=== PATIENT | male | born 1955 | race Caucasian/White ===

== ENCOUNTER 2017-10-13 14:35 | Inpatient (IN) | payer OTHER ==
[~2017-10-13] VITALS: Ht 175.3 cm; Wt 94.8 kg
[~2017-10-13 14:35] MED LIST: ADULT LOW DOSE81 MG PO; AMLODIPINE BESY10 MG PO; AMOXICILLIN875 MG PO; ATROVENT15 ML NS; AUGMENTIN 875875 MG PO; AURODEX OTIC SO10 ML OTIC; BENADRYL25 MG PO; CALCIUM 500 WI1 EAC3 PO; COZAAR 50 MG TA50 M2 PO; DESYREL100 MG PO; ENALAPRIL MALEA10 M1 PO; FINASTERIDE5 MG PO; FLEXERIL PO; GLUCOPHAGE500 MG PO; HYDROCHLOROTHIA25 M1; HYDROCHLOROTHIA25 M2 PO; HYDROCODON-ACE1 EAC7 PO; HYDROCODONE BI473 ML PO; HYDROCODONE-AP1 EAC6 PO; LEVAQUIN 750 M750 MG PO; LIDODERM 5%1 PATC1 TRANSDERM; MECLIZINE HCL12.5 MG PO; MEDROLDOSEPACK PO; METFORMIN; NORCO 5-325 TA1 EACH PO; NORCO 7.5-3251 EACH PO; OMEPRAZOLE40 MG PO; PEPCID20 MG PO; SERTRALINE HCL50 MG PO; TIZANIDINE HCL4 M1 PO; TRAZODONE HCL100 MG PO; ZENPEP DR 10,01 EACH PO; ZOCOR40 MG PO; ZOFRAN ODT4 MG PO; ZOLOFT100 MG PO; ZOLOFT50 MG PO
[2017-10-13 14:53] VITALS: BP 131/80
[2017-10-13 15:39] LABS: URINE BILIRUBIN NEGATIVE (Negative); URINE BLOOD NEGATIVE (Negative); URINE CLARITY CLEAR; URINE COLOR YELLOW; URINE GLUCOSE-RANDOM 1+ (Negative); URINE KETONES NEGATIVE (Negative); URINE LEUKOCYTES-REFLEX NEGATIVE (Negative); URINE NITRITE-REFLEX NEGATIVE (Negative); URINE PROTEIN TRACE (Negative); URINE UROBILINOGEN 0.2 E.U./dl (0.2-1.0)
[2017-10-13 16:03] LABS: HEMATOCRIT 37.5 % (42.0-52.0); HEMOGLOBIN 11.7 gm/dL (14.0-18.0); MCH 25.8 pg (26.0-34.0); MCHC 31.2 g/dL (28.0-37.0); MCV 82.7 fL (80.0-100.0); MPV 9.8 fl. (7.2-11.1); NUCLEATED RBCS 0 /100WBC; PLATELET COUNT* 427 thou/uL (150-400); RBC 4.54 mil/uL (4.50-6.00); RDW-CV 19.2 % (10.5-14.5); WBC 16.2 thou/uL (4.0-11.0)
[2017-10-13 16:10] LABS: APTT 26.1 Seconds (25.0-31.3); PROTIME 9.6 Seconds (9.20-11.50)
[2017-10-13 16:21] LABS: ANION GAP 12 mmol/L (7-16); BUN 11 mg/dL (7-18); CALCIUM 8.4 mg/dL (8.5-10.1); CHLORIDE 102 mmol/L (98-107); CO2 26 mmol/L (21-32); GLUCOSE 198 mg/dL (70-99); POTASSIUM 3.4 mmol/L (3.5-5.1); SODIUM 140 mmol/L (136-145)
[2017-10-13 16:28] LABS: ALBUMIN 3.4 g/dL (3.4-5.0); ALKALINE PHOSPHATASE 88 U/L (46-116); SGOT 26 U/L (15-37); SGPT 31 U/L (30-65); TOTAL BILIRUBIN 0.1 mg/dL (<0.1-1.0); TOTAL PROTEIN 7.6 g/dL (6.4-8.2); TROPONIN-I LEVEL <0.06 ng/mL (<0.06)
[2017-10-13 16:36] LABS: ABSOLUTE EOSINOPHILS 0.5 thou/uL (0.0-0.7); ABSOLUTE LYMPHOCYTES 1.3 thou/uL (0.8-5.3); ABSOLUTE MONOCYTES 0.8 thou/uL (0.0-1.2); ABSOLUTE NEUTROPHILS 13.6 thou/uL (1.6-8.1); ATYPICAL LYMPHS 1 %
[2017-10-13 16:37] LABS: ANISOCYTOSIS 1+; HYPOCHROMASIA 1+; PLATELET ESTIMATE ADEQUATE; POIKILOCYTOSIS 1+
[2017-10-13 16:51] LABS: AMYLASE 25 U/L (25-115); LIPASE 50 U/L (73-393)
[2017-10-13 17:05] LABS: INFLUENZA A ANTIGEN None Detected (None Detect); INFLUENZA B ANTIGEN None Detected (None Detect)
[2017-10-13] MEDS ORDERED: VENTOLIN HFA 1818 GM INH (17:21)
[2017-10-13] MEDS ORDERED: NORCO 7.5-3251 EACH PO (17:21)
[2017-10-13] MEDS ORDERED: ZPAK PO (17:21)
[2017-10-13 18:03] VITALS: BP 129/78
[2017-10-13 20:52] VITALS: BP 157/85
[2017-10-13 21:19] VITALS: BP 152/78
--- NOTE | 2017-10-14 03:34 | NUR ---
PATIENT ARRIVED TO ROOM 116 FROM ER ALERT AND ORIENTED. ORIENTED TO ROOM AND BED CONTROLS. ASSESSMENT DONE CHARTED. C/O HEADACHE BUT PATIENT STATED IV PAIN MEDICATION WAS NOT HELPFUL. PAGED FOR NEW PAIN MEDICAITON. IVF INFUSING WITHOUT DIFFICULTY. NO C/O N/V. PATIENT STATED HE HAS A PRODUCTIVE COUGH OF YELLOW SPUTUM. O2 SAT 93% ON O2 AT 2L/NC. CONTINUES TO RECEIVE IV ANTIBIODICS, INHALERS AND IV STERIODS. DR RETURNED CALL AND ALSO NOTIFIED OF ELEVATED TEMPATURE. NEW MEDICATION ORDER NOTED. WANTED PATIENT TRANSFERED TO TELE. REPORT CALLED TO CARMINE AT APROXIMATELY 0030. SHE WAS NOTIFIED OF MOST RECENT ASSESSMENT V/S AND LABS. PATIENT TRANSFERED TO ROOM AT APROXIMATELY 0040.
[2017-10-14 04:49] VITALS: BP 132/56
--- NOTE | 2017-10-14 05:24 | NUR ---
PT TRANSFERED FROM [facility]THO AT 0130 ALERT AND ORIENTED VS AND ASSESSMENT STABLE. NSR ON THE MONITOR. PT C/O PAIN GAVE PRN FENTANYL THEN NORCO. THEN PT SLEPT THROUGH THE NIGHT. WILL MONITOR.
[2017-10-14 05:26] LABS: HEMATOCRIT 34.2 % (42.0-52.0); HEMOGLOBIN 10.8 gm/dL (14.0-18.0); MCH 26.4 pg (26.0-34.0); MCHC 31.7 g/dL (28.0-37.0); MCV 83.1 fL (80.0-100.0); MPV 9.8 fl. (7.2-11.1); RBC 4.11 mil/uL (4.50-6.00); RDW-CV 19.3 % (10.5-14.5); WBC 13.7 thou/uL (4.0-11.0)
[2017-10-14 05:42] LABS: CALCIUM 7.8 mg/dL (8.5-10.1); CREATININE 0.9 mg/dL (0.6-1.3); POTASSIUM 3.5 mmol/L (3.5-5.1)
[2017-10-14 08:59] VITALS: BP 113/64
--- NOTE | 2017-10-14 11:05 | NUR ---
ASSUMED PT CARE 0730. PT A/O X'S 4. PT C/O OF HEADACHE, RIGHT UPPER QUADRANT PAIN. PAIN MEDICATION ADMINISTERED PER DEC. PT VOIDING PER URINAL. WILL CONTINUE PLAN OF CARE.
[2017-10-14 11:30] VITALS: BP 162/93
[2017-10-14] MEDS ORDERED: LANTUS100 UNIT/M SUBQ ×2 (14:11)
[2017-10-14] MEDS ORDERED: HUMALOG100 UNIT/1 SUBQ ×2 (14:12)
--- NOTE | 2017-10-14 14:51 | NUR ---
MET WITH PT TO DISCUSS HOME SITUATION/DC PLANNING. PT LIVES WITH . HE USES [facility]. STATES THEY ARE BOTH DISABLED BUT MANAGE WELL. HAVE SUPPORTIVE FAMILY. PT STATES HE'S HAD '21 SURGERIES' IN HIS LIFE, MOST RECENT WAS A WHIPPLE IN JUL. HE HAS HAD HH WITH [facility] BUT NOT CURRENT. HAS A [employer] NURSE THAT VISITS HIM. HE USES INHALERS AT HOME. DENIES ANY DC NEEDS AT THIS TIME. PLANS TO RETURN HOME WITH AT DC. WILL FOLLOW
[2017-10-14 15:30] VITALS: BP 167/81
--- NOTE | 2017-10-14 15:43 | EKG ---
[place] [id number] ELECTROCARDIOGRAM REPORT Name: YOLI OTTO Room: [address] ADM IN M.R.#: [id number] Admission: 10/13/17 Attend Phys: Nic Trejo, Discharge: Date of : 57 Report #: [id number] THIS REPORT FOR: //name// [facility] ED Test Date: 2017-10-13 Test Time: 15:26:12 Pat Name: YOLI OTTO Department: Room: [facility] Gender: Panama Hat Hydraulic Press Operator: Rahel LOPEZ : 1955 Requested By: My Calabrese Order Number: [id number] MD: Carlos Zimmer Measurements Intervals [place] Rate: 104 P: 69 TX: 167 QRS: -50 QRSD: 102 T: 74 QT: 375 QTc: 494 Interpretive Statements Sinus tachycardia Probable left atrial enlargement LAD, consider left anterior fascicular block Abnormal R-wave progression, early transition Borderline T wave abnormalities Borderline prolonged QT interval Compared to ECG 07/22/2017 12:31:51 T-wave abnormality now present Sinus rhythm no longer present Electronically Signed On 10-14-2017 15:43:17 SORT LINE WORKER by Carlos Zimmer [email or web address] <ELECTRONICALLY SIGNED> By: Carlos Zimmer MD, FACC 10/14/17 1543 1526 1526 Carlos Zimmer MD, FACC /EPI
--- NOTE | 2017-10-14 18:43 | NUR ---
PT REPORTED HE TAKES INSULIN. HOME MEDICATION LIST UPDATED. PAGEMadison AND ASKED FOR INSULIN. INSULIN ORDERED AND ADMINISTERED PER DEC. PT HAS NOT GOTTEN OUT OF BED THIS SHIFT. PT VOIDING PER URINAL.
[2017-10-14 20:21] VITALS: BP 157/76
[2017-10-15] VITALS: BP 122/56
--- NOTE | 2017-10-15 00:46 | NUR ---
BEGAN CARE OF PT AT 1930, PT A/OX4, O2 VIA NC, SR ON THE MONITOR, ABLE TO VOICE NEEDS, MEDS/ASSESSMENT PER CHARTING, HOURLY ROUNDING/FALL PRECAUTIONS IN PLACE, PAIN TREATED X1 THUS FAR, VSS, WILL CONT TO MONITOR.
[2017-10-15 04:00] VITALS: BP 127/54
--- NOTE | 2017-10-15 07:03 | NUR ---
NO ACUTE CHANGES WITH PT OVER NIGHT, PT REC PAIN MEDS X2, PT STATED THE PO PAIN MEDS DO NOT HELP HIM WITH HIS PAIN AND REQUESTED IV FENTANLY WITH BOTH PAIN MED REQUEST, PT DID NOT GET UP TO BATHROOM OVER NIGHT, PT UTILIZED URINAL, VSS, HOURLY ROUNDING COMPLETED, FALL PRECATUIONS REMAIN IN PLACE, WILL CONT TO MONITOR.
[2017-10-15 07:30] VITALS: BP 167/80
[2017-10-15 10:33] LABS: ABSOLUTE LYMPHOCYTES 2.4 thou/uL (0.8-5.3); ABSOLUTE MONOCYTES 1.1 thou/uL (0.0-1.2); ABSOLUTE NEUTROPHILS 12.5 thou/uL (1.6-8.1); BASOPHILS 0.3 %; HEMATOCRIT 34.3 % (42.0-52.0); HEMOGLOBIN 10.6 gm/dL (14.0-18.0); LYMPHOCYTES 14.8 %; MCH 25.7 pg (26.0-34.0); MCHC 30.8 g/dL (28.0-37.0); MCV 83.3 fL (80.0-100.0); MONOCYTES 7.1 %; MPV 9.2 fl. (7.2-11.1); NUCLEATED RBCS 0 /100WBC; PLATELET COUNT* 388 thou/uL (150-400); POLYS 77.8 %; RBC 4.12 mil/uL (4.50-6.00); RDW-CV 19.1 % (10.5-14.5); WBC 16.1 thou/uL (4.0-11.0)
[2017-10-15 10:40] LABS: POTASSIUM 3.6 mmol/L (3.5-5.1)
[2017-10-15] MEDS ORDERED: AZITHROMYCIN 2250 MG PO ×2 (11:39)
[2017-10-15 12:12] VITALS: BP 163/85
--- NOTE | 2017-10-15 13:21 | NUR ---
RECEIVED PT CARE 0700. PT IS ALERT AND ORIENTED X4. VSS. 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 PT VOIDING PER URINAL. HE C/O ABDOMINAL PAIN AND BACK PAIN. PRN PAIN MEDICATIONS GIVEN WITH GOOD RELIEF. PT UP STANDBY ASSIST. DENIES ANY SOA. O2 SAT 94% ON ROOM AIR. AM ASSESSMENT CHARTED. MEDS PER DEC. PLANNING FOR DC TO HOME THIS AFTERNOON. WILL CONTINUE TO MONITOR.
[2017-10-15 14:27] VITALS: BP 163/85
--- NOTE | 2017-10-15 15:16 | NUR ---
RECEIVED DISCHARGE ORDERS PER DR DUNBAR. IV DISCONTINUED. PROPERTY OFFICER REMOVED. ALL BELONGINGS PACKED AND LEAVING WITH PATIENT. EDUCATED PT ON F/U APPT WITH HIS PRIMARY. EDUCATED TO KEEP A DAILY LOG OF HIS BLOOD SUGARS TO BRING WITH HIM TO HIS PRIMARY SO SHE CAN ADJUST HIS DOSE. PT VERBALIZED UNDERSTANDING. HE DENIES ANY QUESTIONS OR CONCERNS. LEAVING AMBULATORY PER PATIENT REQUEST.
== END 2017-10-15 15:45 | disposition home or self-care (01) | DRG 871 ==
LOC: M.ERS 14:35 → M.TBA-ER 17:47 → M.2W 17:47 → M.ORTHSURG 21:12 → M.2W 10-14 00:59
PROVIDERS: Internal Medicine; Nurse Practitioner Family; ADMIT Family Medicine
DX: A41.9 Sepsis, unspecified organism (principal); J15.9 Unspecified bacterial pneumonia; J96.01 Acute respiratory failure with hypoxia; J20.9 Acute bronchitis, unspecified; I10 Essential (primary) hypertension; K21.9 Gastro-esophageal reflux disease without esophagitis; D3A.8 Other benign neuroendocrine tumors; E11.9 Type 2 diabetes mellitus without complications; E89.0 Postprocedural hypothyroidism; Z85.820 Personal history of malignant melanoma of skin; Z87.442 Personal history of urinary calculi; Z85.038 Personal history of other malignant neoplasm of large intestine; Z90.49 Acquired absence of other specified parts of digestive tract; Z79.899 Other long term (current) drug therapy; Z88.8 Allergy status to other drugs, medicaments and biological substances; Z91.041 Radiographic dye allergy status; Z87.891 Personal history of nicotine dependence; Z90.81 Acquired absence of spleen

== ENCOUNTER 2017-10-15 22:36 | Inpatient (IN) | payer OTHER, SELFPAY ==
[~2017-10-15] VITALS: Ht 175.3 cm; Wt 97.1 kg
[2017-10-15 22:36] VITALS: BP 168/86
[~2017-10-15 22:36] MED LIST changes: +AZITHROMYCIN 2250 MG PO; +HUMALOG100 UNIT/1 SUBQ; +LANTUS100 UNIT/M SUBQ; +VENTOLIN HFA 1818 GM INH; +ZPAK PO
[2017-10-15 22:57] LABS: ABSOLUTE BASOPHILS 0.1 thou/uL (0.0-0.2); ABSOLUTE EOSINOPHILS 0.1 thou/uL (0.0-0.7); ABSOLUTE LYMPHOCYTES 1.3 thou/uL (0.8-5.3); ABSOLUTE MONOCYTES 1.3 thou/uL (0.0-1.2); ABSOLUTE NEUTROPHILS 12.4 thou/uL (1.6-8.1); BASOPHILS 0.5 %; EOSINOPHILS 0.6 %; LYMPHOCYTES 8.9 %; MCH 25.7 pg (26.0-34.0); MCHC 31.5 g/dL (28.0-37.0); MCV 81.7 fL (80.0-100.0); MONOCYTES 8.3 %; MPV 9.1 fl. (7.2-11.1); NUCLEATED RBCS 0 /100WBC; PLATELET COUNT* 377 thou/uL (150-400); POLYS 81.7 %; RBC 4.28 mil/uL (4.50-6.00); RDW-CV 19.5 % (10.5-14.5); WBC 15.2 thou/uL (4.0-11.0)
[2017-10-15 23:09] LABS: CALCIUM 8.4 mg/dL (8.5-10.1); POTASSIUM 4.2 mmol/L (3.5-5.1)
[2017-10-15 23:13] LABS: ALBUMIN 3.1 g/dL (3.4-5.0); TOTAL BILIRUBIN 0.1 mg/dL (<0.1-1.0)
[2017-10-16] VITALS (7 sets, daily range): BP systolic 126–161; BP diastolic 58–84
--- NOTE | 2017-10-16 05:38 | NUR ---
PT DISCHARGED 10/15/17 AND RETURNED TO ER THE SAME DAY WITH COMPLAINTS OF SOA AND HAS BEEN READMITTED WITH BRONCHITIS AND HYPOXIA. AT THIS TIME PT IS ON 4L NC AND RESTING COMFORTABLY.
--- NOTE | 2017-10-16 07:15 | NUR ---
CHNAGE OF SHIFT, BEDSIDE REPORT GIVEN ASSUMED PATIENT CARE PATIENT SEEN IN BED ASLEEP
--- NOTE | 2017-10-16 19:07 | NUR ---
patient remains a and o x 4 nsr/st low 100s lungs coarse/crackles/dim in the bases o2 2l nc to end the day o2 sats mid-high 90s fair appetite last bm t-1 good uo up ad brayan to bathroom scds while in bed iv 20 ga r ac sl c/o headache freq today, treated with mso4 ivp without much relief and changed to oxycodone and hydrocodone po prn with better relief new orders for neuro and id cons today mri completed abn labs noted wbc 15.2 accuchecks 205/185/168 call light in reach and instruction given and followed
[2017-10-17 00:05] VITALS: BP 121/75
[2017-10-17 04:00] VITALS: BP 99/58
--- NOTE | 2017-10-17 06:14 | NUR ---
PATIENT PARTIALLY PROGRESSING TOWARDS GOALS: PAIN PARTIALLY CONTROLLED WITH PRN MEDICATION. PATIENT REMAINS ON 2L NC WITH SATS >92%. LUNG SOUNDS REMAIN CRACKLES. HOURLY ROUNDING OBSERVED. CALL LIGHT WITHIN REACH
--- NOTE | 2017-10-17 07:25 | NUR ---
ASSUMED CARE OF PT ASSESSED AND DOCUMENTED. PT IS ON CARDIAC MONITER TRACING SR HR 87. PT IS A&O AND HAS NO C/O PAIN. VSS WNL. PT IS AFEBRILE. PT AGREED TO WEAR HIS SCD'S. WM.
--- NOTE | 2017-10-17 07:51 | CON ---
[address] [address] CONSULTATION Name: CLARITAYOLI POST Room: [address] ADM IN M.R.#: [id number] Admission: 10/15/17 Attend Phys: Evie Ching MD Discharge: Date of : 57 Report #: [id number] THIS REPORT FOR: //name// CC: Leatha Ching DATE OF SERVICE: 10/16/2017 ATTENDING PHYSICIAN: Dr. Ching. REASON FOR EVALUATION: Pneumonitis with headaches, fevers. Chart reviewed, patient examined. HISTORY OF PRESENT ILLNESS: This is a 62-year-old with fairly extensive medical history, pancreatic mass. 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 He had been up to 4 liters, now down to 2, also associated fevers. Did have a cough as well, although in part since his discharge yesterday, has developed worsening headache. At this point, he is not encephalopathic. Cultures thus far have been unrevealing and had received some ceftriaxone, more recently azithromycin. Imaging of his head per MRI is pending. Chest x-ray showed mild bibasilar pneumonitis. CT abdomen and pelvis on the without acute process and showed the residual from the previous Whipple. ALLERGIES: CONTRAST DYE, ESOMEPRAZOLE, IODINE, NAPROXEN. CURRENT MEDICATIONS: Include sertraline, finasteride, methylprednisolone, metformin, insulin, trazodone, atorvastatin, budesonide, azithromycin, insulin, hydrocodone. PAST MEDICAL HISTORY: As described above; hypertension, history of reflux, renal lithiasis with previous lithotripsy and stenting, back surgeries due to deep infection described as staphylococcal, sleep apnea, history of colon cancer with hemicolectomy in 2005, history of melanoma, parathyroidectomy, history of meningitis, diabetes mellitus type 2, previous splenectomy. SOCIAL HISTORY: Former smoker. No ethanol. FAMILY HISTORY: Noncontributory. REVIEW OF SYSTEMS: As above. PHYSICAL EXAMINATION: GENERAL: He is alert, cooperative, in vkxx-ya-bzqnsppa distress. [place] [address] CONSULTATION Name: YOLI OTTO Room: [address] IN [facility]#: [id number] Admission: 10/15/17 Attend Phys: Evie Ching MD Discharge: Date of : 57 Report #: [id number] encephalopathic. VITAL SIGNS: Temperature 98.9. He had a T-max of 100.1, pulse 95, respirations 20, blood pressure 152/84. SKIN: Warm, dry, no rashes. HEENT: Unremarkable. NECK: Supple. LUNGS: Few scattered coarse breath sounds, in particular at the bases. HEART: Borderline tachycardic. I do not appreciate a murmur. ABDOMEN: Soft, nontender, nondistended. EXTREMITIES: No cyanosis. GENITOURINARY: Deferred. RECTAL: Deferred. LABORATORY DATA: Electrolytes: Sodium 136, potassium 4.2, chloride 99, bicarbonate is 27, anion gap of 10. BUN and creatinine 10 and 1.0. LFTs unremarkable. Albumin of 3.1. Total protein 7.0. Estimated GFR of 76. CBC: White count of 15.2, H and H 11.0 and 35.0, platelets of 377. CRP of 44.5. Influenza antigen from 10/13/2017 was not detected. Normal amylase and lipase. IMAGING: Chest x-ray: Mild bibasilar infiltrates. ASSESSMENT: Febrile illness with associated dyspnea, may have mild pneumonitis as well. I think it is reasonable to continue empiric antimicrobial therapy. We will go ahead and check blood cultures. We will go ahead and restart ceftriaxone. We will see how he does clinically. He seems to be responding to the narcotic analgesics in terms of his headache. Awaiting imaging studies. At this point, we would not be compelled to proceed with lumbar puncture. We will see how he does clinically. <ELECTRONICALLY SIGNED> By: Amor Oliver MD 10/17/17 0751 1726 0029Jodex Oliver MD /nt
[2017-10-17 08:00] VITALS: BP 133/78
[2017-10-17 12:13] VITALS: BP 143/81
--- NOTE | 2017-10-17 13:01 | NUR ---
CM ASSESSMENT: Pt is A&O. Resides at home with his . Independent. Pt recently dc on 10/15 and returned to the hospital later that evening. Admitted for Bronchitis, hypoxia. Hx of [facility] HH. Goal is to return home. Following for dc needs.
[2017-10-17 17:54] LABS: CSF GLUCOSE 131 mg/dl (40-70); CSF PROTEIN 56.5 mg/dl (15-45)
[2017-10-17 18:12] LABS: CSF CLARITY CLEAR; CSF COLOR COLORLESS; VOLUME 11 ml
[2017-10-17 18:13] LABS: CSF RBC 0 /mm3; CSF WBC 2 /mm3 (0-10)
--- NOTE | 2017-10-17 18:43 | NUR ---
PT HAS CONT TO LAY FLAT OR AT 30 DEGREES SINCE LUMBAR PUNCTURE. FAMILY IS AT BEDSIDE. PT HAS NO C/O PAIN OR DISCOMFORT. PT HAS HAD NO S OR SX OF ADVERSE REACTION TO ABT. EDUCATION GIVEN ON DEMAND. HOURLY ROUNDING COMPLETE.
[2017-10-17 20:00] VITALS: BP 155/81
[2017-10-18 00:08] VITALS: BP 174/92
[2017-10-18 04:05] VITALS: BP 136/70
--- NOTE | 2017-10-18 05:10 | NUR ---
NO CHANGES OVERNIGHT, VSS. PATIENT RECEIVED PAIN MEDICATION X1 WITH RELIEF. PATIENT REMAINS ON 2L O2 WITH SATS >92%. PATIENT REMAINS IN ISOLATION FOR PENDING FLU AND H1N1. HOURLY ROUNDING OBSERVED. CALL LIGHT WITHIN REACH
[2017-10-18 08:00] VITALS: BP 132/91
--- NOTE | 2017-10-18 08:00 | NUR ---
pT RESTING IN BED, APPEARS ALERET O X 4, DENIES CHEST PAIN, SOB, PAIN OR DISCOMFORT, ON O2 AT 2L; PER nc, SATS 92% , RT IN ROOM WITH TX
[2017-10-18 12:23] VITALS: BP 179/89
[2017-10-18 16:14] VITALS: BP 161/86
--- NOTE | 2017-10-18 18:16 | NUR ---
Pt progressing towards goal. remains alert o x 4, denies chest pain, SOB, some headaches still, oxycodone x 1 today with good relief. O2 weaned off, is now on RA. cont on IV and po ABX, IV steroids,aerosol TXS Elevated BS, has SS insulin. Good appetite, taking fluids well
[2017-10-18 21:15] VITALS: BP 156/93
[2017-10-19] VITALS: BP 141/64
[2017-10-19 04:07] VITALS: BP 145/84
--- NOTE | 2017-10-19 05:26 | NUR ---
UP WITH STAND BY ASSIST. CONTINUES ON IV AND PO ANTIBIODIC. CONTINUES TO RECEIVE BREATHING TREATMENTS. PO PAIN MEDICATION HELPFUL FOR HEADACHE. REMAINS ON RESPIRATORY ISOLATION WHILE TEST PENDING. O2 SAT 93% ON ROOM AIR. WILL CONTINUE TO MONITOR. CALL LIGHT WITHIN REACH.
[2017-10-19 07:30] VITALS: BP 146/83
[2017-10-19] MEDS ORDERED: PREDNISONE 10 M10 MG PO ×2 (08:23)
[2017-10-19 10:58] VITALS: BP 146/83
[2017-10-19] MEDS ORDERED: CEFUROXIME500 MG PO (11:01)
--- NOTE | 2017-10-19 11:35 | NUR ---
VSS, ASSUMED CARE IN THE AM ASSESSMET PERORMED AND CHARTED, FALL PRECAUTIONS IN PLACE AND CALL LIGHT IN REACH, PT IS A&O4 AND UP AD VERÓNICA, TRACING SR ON THE MONITOR AND DENIES ANY PAIN AT THIS TIME, PT GOAL IS TO D/C ON DAY OF CARE. PT IS ON RA AND GETTING BREATHING TREATMENTS. AT THIS TIME I RECEIVED D/C ORDEREDS AND FILLED OUT D/C PAPERS, PT DENIES ANY QUESTIONS OR CONCERNS AT TIME OF D/C IV AND TELE MONIOR TAKEN OUT, PT GATHERED BELONGINGS AND WAS WALKED OUT BY STAFF TO CAR, HOURLY ROUNDS COMPLETED,
[2017-10-20 09:59] LABS: SOURCE CSF
[2017-10-21 02:05] LABS: ADENOVIRUS Negative (Negative); INFLUENZA A Positive (Negative); INFLUENZA B Negative (Negative); METAPNEUMOVIRUS Negative (Negative); PARAINFLUENZA 1 Negative (Negative); PARAINFLUENZA 2 Negative (Negative); PARAINFLUENZA 3 Negative (Negative); RHINOVIRUS Negative (Negative); RSV A Negative (Negative); RSV B Negative (Negative)
[2017-10-23 15:11] LABS: BODY FLUID LDH 16 IU/L (())
--- NOTE | 2017-11-07 20:10 | CON ---
[address] [address] CONSULTATION Name: CLARITAYOLIHOSEA Room: [address] IN M.R.#: [id number] Admission: 10/15/17 Attend Phys: Evie Ching MD Discharge: 10/19/17 Date of : 57 Report #: [id number] THIS REPORT FOR: //name// CC: Leatha Ching DATE OF SERVICE: 10/16/2017 HISTORY OF PRESENT ILLNESS: This is a 62-year-old male patient who was evaluated by me for headache. He indicates that his headache is going on for about 5-6 days. He was admitted with respiratory difficulty. He indicated that is also somewhat new and he also indicates that he was diagnosed with bronchitis and his oxygen saturation has not been very good. He indicated he usually does not get headache. He did have an MRI in 2010. He does not remember that but looks like the symptom was vertigo. He describes his headache as severe, generalized and nothing makes it better or worse. 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 His blood sugar is high. He has been admitted with bronchitis. He has been evaluated for PE. He has a history of esophageal reflux disease. He also has a history of sleep apnea and a colon cancer. He does have a prior history of meningitis long time ago. He does have a history of diabetes. This was his relevant 14-point review of system. PAST MEDICAL HISTORY: Positive for multiple things including Whipple procedure. FAMILY HISTORY: Negative for early age stroke. SOCIAL HISTORY: He does not consume alcohol. He has smoked in the past but does not do it now. PHYSICAL EXAMINATION: NEUROLOGICAL: Indicate he is alert, he is responsive and he is able to follow simple commands. Memory, fund of knowledge and speech is at his baseline. Cranial nerve examination 2 through 12 is unremarkable. I do not see any papilledema in this patient. His strength, sensation, reflexes and tone is symmetrical. I could not have a very good look at the patient's fundus. There is no meningeal sign the best I can tell. There is no carotid bruit. He does not have any cerebellar sign. GENERAL: He is a very well developed individual who does not have any dysmorphic features of eyes, ears and face. EXTREMITIES: His pulses are palpable. SKIN: He has no edema, cyanosis or jaundice. NECK: He has no thyroid mass. There is no carotid bruit. CARDIAC: Examination does not show any abnormality of the heart sound, murmur [place] [address] CONSULTATION Name: YOLI OTTO Room: [address]#: [id number] Admission: 10/15/17 Attend Phys: Evie Ching MD Discharge: 10/19/17 Date of : 57 Report #: [id number] RESPIRATORY: Examination does indicate some rhonchi. VITAL SIGNS: His temperature has gone up to about 100 and is running about 99 now. His blood pressure is 161/79, pulse is 95 and temperature is 99. LABORATORY DATA: Indicates that his white count is high at 15.2. His blood sugar also has been high. RADIOLOGICAL DATA: There is no present imaging study from the brain, but he had imaging study of the brain in the past and in fact in 2010 also had a stroke protocol. IMPRESSION: Intractable headache in a patient who has what looks like a systemic infection. The headache may be because of systemic infection but he is a diabetic and therefore, we need to exclude the possibility of venous thrombosis. He also can have central nervous system infection, especially viral meningitis and that can cause these kind of symptoms. RECOMMENDATIONS: 1. I will suggest getting the MRI done. 2. I will suggest an ID consult because he does look like has some systemic infection. 3. If MRI is normal, then we need to consider the possibility of spinal tap in this patient if the MRI does not show any abnormality. I discussed all of it with the patient. I discussed his options and he wants to follow this option. More than 50 minutes of time was spent taking care of this patient today and majority of the time was spent counseling the patient on above matters. Thank you very much for this referral. <ELECTRONICALLY SIGNED> By: Edmar Kearns MD 11/07/172009 161 99Edmar Kearns MD /nt
== END 2017-10-19 12:59 | disposition home or self-care (01) | DRG 193 ==
LOC: M.ERS 22:36 → M.2W 23:54 → M.TBA-ER 23:54 → M.2W 10-16 00:19
PROVIDERS: Emergency Medicine; Internal Medicine; ADMIT Internal Medicine
PROC: B01B1ZZ Fluoroscopy of Spinal Cord using Low Osmolar Contrast (ICD-10-PCS; principal; 2017-10-17)
PROC: 009U3ZX Drainage of Spinal Canal, Percutaneous Approach, Diagnostic (ICD-10-PCS; principal; 2017-10-17)
DX: J15.9 Unspecified bacterial pneumonia (principal); J96.21 Acute and chronic respiratory failure with hypoxia; A87.9 Viral meningitis, unspecified; R65.10 Systemic inflammatory response syndrome (SIRS) of non-infectious origin without acute organ dysfunction; J98.11 Atelectasis; E11.9 Type 2 diabetes mellitus without complications; E89.0 Postprocedural hypothyroidism; J20.9 Acute bronchitis, unspecified; I10 Essential (primary) hypertension; K21.9 Gastro-esophageal reflux disease without esophagitis; Z90.49 Acquired absence of other specified parts of digestive tract; Z85.038 Personal history of other malignant neoplasm of large intestine; Z85.820 Personal history of malignant melanoma of skin; Z90.81 Acquired absence of spleen; Z87.442 Personal history of urinary calculi; Z79.899 Other long term (current) drug therapy; Z88.8 Allergy status to other drugs, medicaments and biological substances; Z91.041 Radiographic dye allergy status; Z87.891 Personal history of nicotine dependence

== ENCOUNTER 2018-02-25 17:48 | Emergency (ER) | payer OTHER, SELFPAY ==
[~2018-02-25] VITALS: Ht 175.3 cm; Wt 110.2 kg
[~2018-02-25 17:48] MED LIST changes: +CEFUROXIME500 MG PO; +PREDNISONE 10 M10 MG PO
[2018-02-25 18:20] LABS: ABSOLUTE BASOPHILS 0.1 thou/uL (0.0-0.2); ABSOLUTE EOSINOPHILS 0.4 thou/uL (0.0-0.7); ABSOLUTE LYMPHOCYTES 3.4 thou/uL (0.8-5.3); ABSOLUTE MONOCYTES 1.2 thou/uL (0.0-1.2); ABSOLUTE NEUTROPHILS 11.3 thou/uL (1.6-8.1); BASOPHILS 0.6 %; EOSINOPHILS 2.7 %; HEMATOCRIT 38.4 % (42.0-52.0); HEMOGLOBIN 12.1 gm/dL (14.0-18.0); LYMPHOCYTES 20.6 %; MCH 25.7 pg (26.0-34.0); MCHC 31.4 g/dL (28.0-37.0); MONOCYTES 7.2 %; NUCLEATED RBCS 0 /100WBC; PLATELET COUNT* 399 thou/uL (150-400); POLYS 68.9 %; RBC 4.68 mil/uL (4.50-6.00); RDW-CV 18.6 % (10.5-14.5); WBC 16.4 thou/uL (4.0-11.0)
[2018-02-25 18:29] LABS: ANION GAP 10 mmol/L (7-16); BUN 21 mg/dL (7-18); CALCIUM 8.7 mg/dL (8.5-10.1); CHLORIDE 103 mmol/L (98-107); CO2 27 mmol/L (21-32); CREATININE 1.1 mg/dL (0.6-1.3); GLUCOSE 112 mg/dL (70-99); POTASSIUM 3.6 mmol/L (3.5-5.1); SODIUM 140 mmol/L (136-145)
[2018-02-25 18:36] LABS: ALBUMIN 3.7 g/dL (3.4-5.0); ALKALINE PHOSPHATASE 85 U/L (46-116); LIPASE 45 U/L (73-393); SGOT 17 U/L (15-37); SGPT 31 U/L (30-65); TOTAL BILIRUBIN 0.2 mg/dL (<0.1-1.0); TOTAL PROTEIN 7.8 g/dL (6.4-8.2); TROPONIN-I LEVEL <0.06 ng/mL (<0.06)
[2018-02-25 18:54] LABS: URINE BILIRUBIN NEGATIVE (Negative); URINE BLOOD NEGATIVE (Negative); URINE CLARITY CLEAR; URINE COLOR YELLOW; URINE GLUCOSE-RANDOM NEGATIVE (Negative); URINE KETONES NEGATIVE (Negative); URINE LEUKOCYTES-REFLEX NEGATIVE (Negative); URINE NITRITE-REFLEX NEGATIVE (Negative); URINE PROTEIN NEGATIVE (Negative); URINE UROBILINOGEN 0.2 E.U./dl (0.2-1.0)
[2018-02-25] MEDS ORDERED: CITRATE OF MAG296 ML PO (19:46)
[2018-02-25 19:59] VITALS: BP 152/88
--- NOTE | 2018-02-26 11:49 | EKG ---
[place] [address] ELECTROCARDIOGRAM REPORT Name: YOLI OTTO Room: [facility]#: [id number] Admission: 02/25/18 Attend Phys: Discharge: 02/25/18 Date of : 57 Report #: [id number] THIS REPORT FOR: //name// [facility] ED Test Date: 2018-02-25 Test Time: 18:09:33 Pat Name: YOLI OTTO Department: Room: Gender: Behavioral Psychologist: Rahel LÓPEZ : 1955 Requested By: Raysa Edge Order Number: [id number] MD: Evan Arciniega Measurements Intervals [place] Rate: 82 P: 46 AL: 178 QRS: -21 QRSD: 97 T: 81 QT: 402 QTc: 470 Interpretive Statements Sinus rhythm Borderline left axis deviation Compared to ECG 10/13/2017 15:26:12 Sinus tachycardia no longer present T-wave abnormality no longer present Electronically Signed On 02-26-2018 11:49:18 CDT by Evan Arciniega [email or web address] <ELECTRONICALLY SIGNED> By: Evan Arciniega MD, FACC 02/26/18 1149 1809 1809 Evan Arciniega MD, [facility] /EPI
== END 2018-02-25 19:59 | disposition home or self-care (01) ==
LOC: M.ERS 17:48
PROVIDERS: Physician Assistant
DX: K59.00 Constipation, unspecified (principal); R10.13 Epigastric pain; I10 Essential (primary) hypertension; K21.9 Gastro-esophageal reflux disease without esophagitis; E11.9 Type 2 diabetes mellitus without complications; F32.9 Major depressive disorder, single episode, unspecified; Z85.828 Personal history of other malignant neoplasm of skin; G47.30 Sleep apnea, unspecified; Z79.4 Long term (current) use of insulin; Z87.442 Personal history of urinary calculi; Z90.49 Acquired absence of other specified parts of digestive tract; Z88.8 Allergy status to other drugs, medicaments and biological substances; Z91.041 Radiographic dye allergy status

== ENCOUNTER 2018-04-19 14:29 | Emergency (ER) | payer OTHER, SELFPAY ==
[~2018-04-19] VITALS: Ht 175.3 cm; Wt 90.7 kg
[~2018-04-19 14:29] MED LIST changes: +CITRATE OF MAG296 ML PO
[2018-04-19] MEDS ORDERED: KEFLEX500 M1 PO (15:40)
[2018-04-19 15:49] VITALS: BP 137/73
== END 2018-04-19 15:50 | disposition home or self-care (01) ==
LOC: M.ERS 14:29
DX: L03.032 Cellulitis of left toe (principal); I10 Essential (primary) hypertension; K21.9 Gastro-esophageal reflux disease without esophagitis; G47.30 Sleep apnea, unspecified; E11.9 Type 2 diabetes mellitus without complications; F32.9 Major depressive disorder, single episode, unspecified; Z91.041 Radiographic dye allergy status; Z88.8 Allergy status to other drugs, medicaments and biological substances; Z79.4 Long term (current) use of insulin

== ENCOUNTER → 2018-05-07 | Outpatient (CLI) | payer OTHER, SELFPAY ==
[~2018-05-07] MED LIST changes: +KEFLEX500 M1 PO
== END ==
LOC: M.CT 12:28
DX: R42 Dizziness and giddiness (principal)

== ENCOUNTER → 2018-06-09 | Outpatient (CLI) | payer OTHER | LOC: M.LAB 08:30 → M.CT 08:32 | PROVIDERS: Surgery | DX: K76.0 Fatty (change of) liver, not elsewhere classified (principal); C25.9 Malignant neoplasm of pancreas, unspecified; C18.9 Malignant neoplasm of colon, unspecified; M43.26 Fusion of spine, lumbar region; M43.27 Fusion of spine, lumbosacral region; D3A.8 Other benign neuroendocrine tumors; I10 Essential (primary) hypertension; E11.9 Type 2 diabetes mellitus without complications ==

== ENCOUNTER → 2018-12-21 | Outpatient (CLI) | payer OTHER ==
[2018-12-21 13:26] LABS: POTASSIUM 3.4 mmol/L (3.5-5.1)
== END ==
LOC: M.LAB 01:01
PROVIDERS: Student in an Organized Health Care Education/Training Program
DX: Z01.812 Encounter for preprocedural laboratory examination (principal); E11.9 Type 2 diabetes mellitus without complications; Z79.4 Long term (current) use of insulin

== ENCOUNTER 2019-01-14 17:24 | Inpatient (IN) | payer OTHER ==
[~2019-01-14] VITALS: Ht 175.3 cm; Wt 92.5 kg
[2019-01-14] VITALS (8 sets, daily range): BP systolic 149–230; BP diastolic 78–133
[2019-01-14 18:06] LABS: HEMOGLOBIN 13.6 gm/dL (14.0-18.0); MCHC 32.5 g/dL (28.0-37.0); MCV 83.2 fL (80.0-100.0); RBC 5.04 mil/uL (4.50-6.00); RDW-CV 17.5 % (10.5-14.5); WBC 12.3 thou/uL (4.0-11.0)
[2019-01-14 18:18] LABS: ALBUMIN 3.7 g/dL (3.4-5.0); CALCIUM 8.9 mg/dL (8.5-10.1); CREATININE 1.1 mg/dL (0.6-1.3); POTASSIUM 3.4 mmol/L (3.5-5.1); TOTAL BILIRUBIN 0.2 mg/dL (<0.1-1.0); TOTAL PROTEIN 8.2 g/dL (6.4-8.2)
[2019-01-14 18:18] LABS: URINE BILIRUBIN NEGATIVE (Negative); URINE BLOOD NEGATIVE (Negative); URINE CLARITY CLEAR; URINE COLOR YELLOW; URINE GLUCOSE-RANDOM 1+ (Negative); URINE KETONES NEGATIVE (Negative); URINE LEUKOCYTES NEGATIVE (Negative); URINE NITRITE NEGATIVE (Negative); URINE PROTEIN NEGATIVE (Negative); URINE SPECIFIC GRAVITY <= 1.005 (1.005-1.030); URINE UROBILINOGEN 0.2 E.U./dl (0.2-1.0)
[2019-01-14 18:21] LABS: ACETAMINOPHEN < 2 ug/mL (10-30); ALCOHOL < 10 mg/dL (<10); SALICYLATE < 2.8 mg/dL (2.8-20.0)
[2019-01-14 18:37] LABS: AMP/METHAMP Negative (Negative); BARBITURATES Negative (Negative); BENZODIAZEPINES Negative (Negative); COCAINE Negative (Negative); METHADONE Negative (Negative); OPIATES Negative (Negative); PCP Negative (Negative); THC Negative (Negative)
--- NOTE | 2019-01-14 18:57 | NUR ---
PT BOLUSED WITH D10 PER PROVIDER ORDER, D50 HELD UNTIL ICU ROOM
--- NOTE | 2019-01-14 19:33 | NUR ---
1850 PT ARRIVED VIA GURNEY FROM ER, ALERT AND ORIENTED X4, BLOOD SUGAR [address] ENGLISH AT BEDSIDE, REPORT GIVEN TO LOWELL FRANCISCO. ALL BELONGINGS SENT TO SECURITY, PER LOWELL SAEED.
[2019-01-14 20:09] LABS: CALCIUM 8.4 mg/dL (8.5-10.1); CREATININE 0.9 mg/dL (0.6-1.3); MAGNESIUM 1.9 mg/dL (1.8-2.4)
[2019-01-15] VITALS (20 sets, daily range): BP systolic 104–156; BP diastolic 54–90
[2019-01-15 04:18] LABS: HEMATOCRIT 37.6 % (42.0-52.0); HEMOGLOBIN 12.1 gm/dL (14.0-18.0); MCHC 32.2 g/dL (28.0-37.0); MCV 83.9 fL (80.0-100.0); RBC 4.48 mil/uL (4.50-6.00); WBC 13.1 thou/uL (4.0-11.0)
[2019-01-15 04:44] LABS: CREATININE 0.9 mg/dL (0.6-1.3); MAGNESIUM 1.7 mg/dL (1.8-2.4); POTASSIUM 3.2 mmol/L (3.5-5.1)
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
--- NOTE | 2019-01-15 09:51 | NUR ---
PT A/O X'S 4. C/O OF HEADACHE 04/28. PT REPORTS TYLENOL DOES NOT WORK FOR HIM BUT ADVIL DOES. DR NOTIFIED & RECEIVED ORDER FOR ONE TIME ORDER OF IBPROFEN. SITTER IN PLACE. SAFETY MAINTAINED. VSS. BLOOD GLUCOSE TAKEN Q HOURLY. 2 AMPS OF D50 ADMININSTERED. AFTER EATING 100% BREAKFAST. PT HAD EGGS, BISCUIT, HASH BROWN. 240ML OF APPLE JUICE AND 2 CONTAINERS OF FLAVORED ICE. BLOOD GLUCOSE THEN 172. WILL CONTINUE TO MONITOR.
--- NOTE | 2019-01-15 10:13 | EKG ---
[place] [address] ELECTROCARDIOGRAM REPORT Name: YOLI OTTO Room: [address] ADM IN M.R.#: [id number] Admission: 01/14/19 Attend Phys: Tanja Espinoza MD Discharge: Date of : 57 Report #: [id number] THIS REPORT FOR: //name// [facility] ED Test Date: 2019-01-14 Test Time: 17:57:17 Pat Name: YOLI OTTO Department: Room: [facility] Gender: M Clam Shovel Operator: Rahel HERNANDEZ : 1955 Requested By: Raysa Del Valle Order Number: [id number] MD: Colin Mendoza Measurements Intervals [place] Rate: 86 P: 69 NM: 172 QRS: -42 QRSD: 99 T: 82 QT: 388 QTc: 464 Interpretive Statements Sinus rhythm Left axis deviation Abnormal R-wave progression, early transition Baseline wander in lead(s) V1 Compared to ECG 02/25/2018 18:09:33 No significant changes Electronically Signed On 01-15-2019 10:12:55 CDT by Colin Mendoza [email or web address] <ELECTRONICALLY SIGNED> By: Colin Mendoza MD, FACC 01/15/19 1012 1757 1757 Colin Mendoza MD, [facility] /EPI
[2019-01-15] MEDS ORDERED: Zoloft PO (10:46)
--- NOTE | 2019-01-15 13:59 | NUR ---
INITIAL ASSESSMENT: Pt evaluated for d/c planning needs. Pt admitted to the ICU with reported suicide attempt. Pt lives at home with and daughter. Awaiting input from psychiatry and medical physician re: d/c disposition.
--- NOTE | 2019-01-15 17:30 | NUR ---
TELE PSYCH CONSULT CALLED. AWAITING CALL BACK.
[2019-01-15 22:41] LABS: MAGNESIUM 1.6 mg/dL (1.8-2.4); POTASSIUM 3.3 mmol/L (3.5-5.1)
[2019-01-16] VITALS (19 sets, daily range): BP systolic 126–183; BP diastolic 64–112
[2019-01-16 05:58] LABS: HEMATOCRIT 36.6 % (42.0-52.0); HEMOGLOBIN 11.9 gm/dL (14.0-18.0); MCH 27.3 pg (26.0-34.0); MCHC 32.6 g/dL (28.0-37.0); MCV 83.8 fL (80.0-100.0); MPV 9.1 fl. (7.2-11.1); RBC 4.37 mil/uL (4.50-6.00); RDW-CV 17.1 % (10.5-14.5)
[2019-01-16 06:18] LABS: CALCIUM 7.8 mg/dL (8.5-10.1); CREATININE 0.8 mg/dL (0.6-1.3); MAGNESIUM 1.9 mg/dL (1.8-2.4); POTASSIUM 3.6 mmol/L (3.5-5.1)
--- NOTE | 2019-01-16 06:36 | NUR ---
PT WAS VITALLY STABLE THE WHOLE NIGHT. TYLENOL AND HYDROCODONE GIVEN FOR HEADACHE BUT STILL WITH HEADACHE. D10 250ML/HR INCREASE GRADULLY TO 400ML/HR. 400ML/HR.POTASIUM AND MAGNESIUM CORRETION DONE.
--- NOTE | 2019-01-16 14:34 | NUR ---
Received telephone call from nurse stating pt was evaluated by psychiatry and recommendation is for pt to go to inpatient psych on d/c from hospital. Pt is not medically ready for d/c today. Will remain available to assist as needed and make referrals when appropriate.
--- NOTE | 2019-01-16 15:00 | NUR ---
PT REPORTS TORADOL DID NOT HELP PAIN. DR NOTIFIED IBPROFEN AND TRAMADOL ORDRERED. PT TOOK BOTH MEDICATIONS. PRIOR TO ADMINISTRATION HEAD PAIN 8/10. AT REASSESSMENT PAIN 8/10. PT REPORTS TAKING HIGHER FREQUENCY OF HYDROCODONE AT HOME. DOSAGE STAYED SAME AT 5/325 FREQUENCY INCREASED FROM Q6 TO Q4. PT REFUSED TO TAKE STATES SINCE NOT WHAT HE TAKES AT HOME, IT WILL NOT HELP PAIN. ICE PACKS OFFERED. PT REPORTS HE GETS THESE HEADACHES AT HOME. ASKED PT WHAT HE WOULD DO AT HOME AND PT STATED HE WOULD JUST DO WHAT HE COULD DO.
--- NOTE | 2019-01-16 17:40 | NUR ---
BP ELEVATED 176/109. PRN PO HYDRLAZINE ADMININSTERED PER EMAR.
[2019-01-17] VITALS (19 sets, daily range): BP systolic 118–175; BP diastolic 68–101
--- NOTE | 2019-01-17 04:14 | NUR ---
PT WAS TAKEN OF IVF FOR APPROXIMATELY 4 1/2 HRS, BS NOTED TO TREND DOWN, RESTARTED IVF AT 50 ML/HR WHEN BS DOWN TO 103. VSS. SR ON MONITOR. PT DENIES ANY FURTHER SI. NO NEW CONCERNS AT THIS TIME. 1:[address] FOR PT SAFETY.
--- NOTE | 2019-01-17 10:18 | NUR ---
01/17: SUICIDE PRECAUTIONS DISCONTINUED, PSYCH RECOMMENDATIONS PLACED IN CHART.
--- NOTE | 2019-01-17 17:41 | NUR ---
01/17 Days: Patient off D10 this am. Changed glucose checks to q4h. Patient eating well. Orozco discontinued. Reece reconsulted, suicide precautions lifted, sitter discontinued. Hopefully discharge tomorrow. Social work to see to offer outpatient options per reece rec's. Zoloft restarted.
[2019-01-18 02:01] VITALS: BP 122/66
--- NOTE | 2019-01-18 05:58 | NUR ---
VSS. PT DENIES SI, PAIN AND SOA. BLOOD SUGAR REMAINS STABLE. PT ABLE TO REPOSITION SELF IN BED WITHOUT ASSISTANCE. CALL LIGHT WITHIN REACH.
[2019-01-18 06:52] VITALS: BP 123/85
--- NOTE | 2019-01-18 10:15 | NUR ---
CONTINUE TO FOLLOW. DISCUSSED WITH DR BALDERAS. PT HAS BEEN CLEARED BY TELEPSYCH FOR DC HOME. MET WITH PT. DISCUSSED POSSIBLE F/U OPTIONS, GAVE CRISIS NUMBERS AND LIST OF PSYCHITRISTS AND PSYCHOLOGISTS IN HIS INSURANCE NETWORK. TALKED WITH HIM ABOUT WAYS TO COPE WITH STRESS AND HE ID'D SOMEONE HE COULD CALL/BEST FRIEND IN CASE OF CRISIS. HE IS HOPEFUL AND PLANS TO RETURN HOME WITH AND GRANDDTR.
[2019-01-18] MEDS ORDERED: LANTUS100 UNIT/M SUBQ (10:51)
[2019-01-18] MEDS ORDERED: NORVASC10 MG PO (10:52)
[2019-01-18 11:14] VITALS: BP 137/97
[2019-01-18 12:25] VITALS: BP 137/97
--- NOTE | 2019-01-18 14:54 | NUR ---
01/18 DAYS: Patient discharged. Upon discharge instructions, strongly encouraged patient to follow up on outpatient therapy that case management had referenced. Patient informed that he should return to the ED if s/s of SI/HI returned and to seek help immediately. Patient acknoledged the education and reassured that he would seek help in the SI returned. He also agreed to seek follow up counceling with the references given by case managment. Patient was escorted to private vehicle safely in which his daughter picked him up. All discharge information and scripts discussed, all questions answered.
== END 2019-01-18 12:25 | disposition home or self-care (01) | DRG 918 ==
LOC: M.ERS 17:24 → M.TBA-ER 17:51 → M.ICU 17:51
PROVIDERS: Internal Medicine; Personal Emergency Response Attendant; ADMIT Family Medicine
PROC: 05H433Z Insertion of Infusion Device into Left Innominate Vein, Percutaneous Approach (ICD-10-PCS; principal; 2019-01-14)
DX: T38.3X2A Poisoning by insulin and oral hypoglycemic [antidiabetic] drugs, intentional self-harm, initial encounter (principal); I16.0 Hypertensive urgency; N40.0 Benign prostatic hyperplasia without lower urinary tract symptoms; G89.29 Other chronic pain; E11.8 Type 2 diabetes mellitus with unspecified complications; E89.0 Postprocedural hypothyroidism; M47.812 Spondylosis without myelopathy or radiculopathy, cervical region; M54.9 Dorsalgia, unspecified; I10 Essential (primary) hypertension; K21.9 Gastro-esophageal reflux disease without esophagitis; F32.9 Major depressive disorder, single episode, unspecified; Z79.4 Long term (current) use of insulin; Z79.899 Other long term (current) drug therapy; Z88.8 Allergy status to other drugs, medicaments and biological substances; Z91.041 Radiographic dye allergy status; Z90.49 Acquired absence of other specified parts of digestive tract; Y92.89 Other specified places as the place of occurrence of the external cause; Z87.891 Personal history of nicotine dependence

== ENCOUNTER → 2019-09-06 | Outpatient (CLI) | payer OTHER ==
[~2019-09-06] MED LIST changes: +NORVASC10 MG PO; +Zoloft PO
== END ==
LOC: M.LAB 09:56 → M.CT 11:30
PROVIDERS: Surgery
DX: D3A.8 Other benign neuroendocrine tumors (principal)

== ENCOUNTER 2021-10-25 11:37 | Emergency (ER) | payer OTHER ==
[~2021-10-25] VITALS: Ht 175.3 cm; Wt 90.7 kg
[2021-10-25 16:11] LABS: INFLUENZA A ANTIGEN Negative (Negative); INFLUENZA B ANTIGEN Negative (Negative)
[2021-10-25] MEDS ORDERED: ZPAK PO (16:21)
[2021-10-25] MEDS ORDERED: BUTALB-APAP-CA1 EACH PO (16:21)
[2021-10-25] MEDS ORDERED: CEFPODOXIME PR200 M1 PO (16:21)
[2021-10-25 16:30] VITALS: BP 179/102
== END 2021-10-25 16:30 | disposition home or self-care (01) ==
LOC: M.ERS 11:37
PROVIDERS: Physician Assistant
DX: U07.1 COVID-19 (principal); I10 Essential (primary) hypertension; K21.9 Gastro-esophageal reflux disease without esophagitis; E11.9 Type 2 diabetes mellitus without complications; F32.9 Major depressive disorder, single episode, unspecified; Z90.49 Acquired absence of other specified parts of digestive tract; Z90.89 Acquired absence of other organs; Z98.890 Other specified postprocedural states; Z79.899 Other long term (current) drug therapy; Z91.041 Radiographic dye allergy status; Z91.02 Food additives allergy status; Z88.8 Allergy status to other drugs, medicaments and biological substances